=== PATIENT | male | born 1975 | race Two or more races ===

== ENCOUNTER 2019-05-02 14:57 | Emergency (ER) | payer MEDICAID ==
[~2019-05-02] VITALS: Ht 180.3 cm; Wt 68.5 kg
--- NOTE | 2019-05-02 15:36 | NUR ---
"S/P FALL FROM ROOF A HOUSE WHILE WORKING, -KO LAC ON LT EYEBROW, C/O RAYMOND WRIST & RAYMOND KNEE PAIN" PT [id number], -SOB, NAD NOTED, VSS, PENDING MD CORONADO
[2019-05-02] MEDS ORDERED: MORPHINE SULFATE INJ 4 MG/ML DISP.SYRIN ONE (15:48)
[2019-05-02] MEDS ORDERED: ONDANSETRON HCL/PF 4 MG/2 ML VIAL ONE (15:48)
[2019-05-02] MEDS ORDERED: TDAP [DIPH/PERTUSSIS/TET] 0.5 ML VIAL IM ONE ×2 (15:49→16:00)
[2019-05-02 15:53] LABS: BASOPHILS # (AUTO) 0.1 /CMM (0.0-0.2); BASOPHILS % (AUTO) 0.4 % (0.0-2.0); EOSINOPHILS % (AUTO) 0.3 % (0.0-6.0); HEMATOCRIT 45 % (39-51); HEMOGLOBIN 15.3 g/dL (13.5-17.5); LYMPHOCYTES # (AUTO) 1.2 /CMM (0.8-4.8); MEAN CORPUSCULAR HGB CONC 34 g/dl (31.0-36.0); MEAN CORPUSCULAR VOLUME 89 fL (80-96); MONOCYTES # (AUTO) 0.9 /CMM (0.1-1.30); MONOCYTES % (AUTO) 6.7 % (2.0-12.0); NEUTROPHILS # (AUTO) 11.2 /CMM (1.8-8.9); NEUTROPHILS % (AUTO) 83.6 % (43.0-81.0); PLATELET COUNT (AUTO) 404 /CMM (150-450); WHITE BLOOD COUNT (AUTO) 13.4 K/uL (4.3-11.0)
[2019-05-02 15:58] LABS: CALCIUM, SERUM 8.9 mg/dL (8.5-10.1); CREATININE 1.3 mg/dL (0.6-1.3); POTASSIUM 3.6 mmol/L (3.5-5.1)
[2019-05-02] MEDS ORDERED: MORPHINE SULFATE INJ 2 MG/ML DISP.SYRIN IV ONE (16:00)
[2019-05-02] MEDS ORDERED: LIDOCAINE 1%-EPI 1:100,000 20 ML VIAL TP ONE (16:00)
[2019-05-02] MEDS ORDERED: ONDANSETRON HCL/PF 4 MG/2 ML VIAL IVP ONE (16:00)
[2019-05-02] MEDS ORDERED: IV NS 0.9% 1,000 ML BAG IV ONE (16:00)
--- NOTE | 2019-05-02 17:45 | NUR ---
CALLED [facility] TO HAVE IMAGE READ.
--- NOTE | 2019-05-02 18:17 | NUR ---
CALLED [facility] TO HAVE IMAGE FAXED OVER.
[2019-05-02] MEDS ORDERED: CEPHALEXIN MONOHYDRATE 500 MG CAPSULE PO ONE ×2 (18:28→18:30)
[2019-05-02 19:29] VITALS: BP 139/80
--- NOTE | 2019-05-02 19:29 | NUR ---
Patient discharged to home in stable condition. Written and verbal after care instructions given. Patient verbalizes understanding of instruction. IV removed. Catheter intact and site benign. Pressure and 4x4 applied to site. No bleeding noted.
== END 2019-05-02 19:30 | disposition home or self-care (01) ==
LOC: ER 14:59
DX: S52.591A Other fractures of lower end of right radius, initial encounter for closed fracture (principal); S01.112A Laceration without foreign body of left eyelid and periocular area, initial encounter; S01.511A Laceration without foreign body of lip, initial encounter; S83.8X2A Sprain of other specified parts of left knee, initial encounter; S40.212A Abrasion of left shoulder, initial encounter; S09.8XXA Other specified injuries of head, initial encounter; R51 Headache; Z60.2 Problems related to living alone; W13.2XXA Fall from, out of or through roof, initial encounter; Y93.89 Activity, other specified; Y92.89 Other specified places as the place of occurrence of the external cause; Y99.8 Other external cause status
CPT/HCPCS: 12014; 29125; 29505; 36415; 70450; 70486; 71045; 72125; 73090 ×2; 73110; 73560 ×2; 80048; 85025; 85730; 90471; 90715; 96374; 96375; 99284; A6403 ×2; J2270; J2405; J7030

== ENCOUNTER → 2019-05-12 | Emergency (ER) | payer MEDICAID ==
[~2019-05-12] VITALS: Ht 175.3 cm; Wt 72.6 kg
[2019-05-12 14:28] VITALS: BP 129/77
--- NOTE | 2019-05-12 15:01 | NUR ---
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
== END | disposition home or self-care (01) ==
LOC: ER 14:26
DX: S01.81XD Laceration without foreign body of other part of head, subsequent encounter (principal); S01.511D Laceration without foreign body of lip, subsequent encounter; Z60.2 Problems related to living alone; X58.XXXD Exposure to other specified factors, subsequent encounter